=== PATIENT | male | born 1955 | race Caucasian/White ===

== ENCOUNTER 2023-08-18 13:15 | Inpatient (IN) | payer MEDICARE, BC, SELFPAY ==
[2023-08-18] VITALS (16 sets, daily range): BP systolic 103–126; BP diastolic 64–90; BMI 37.2
--- NOTE | 2023-08-18 11:25 | ED.GENMED ---
History of Present Illness
General
Chief Complaint: Heart Rate Problem
Source: patient and ambulance crew
Time Seen by Provider: 08/18/23 11:16
History of Present Illness
History of Present Illness:
67-year-old male was feeling his usual self this morning. He then got into the car to start driving and noticed that he had discomfort in his teeth and jaw associated with mild dyspnea, mild headache, and just overall not feeling well. He asked
his to take over, and she drove to a school where she was met by EMS. EMS noted patient to be in V. tach with normal vital signs at that time. He was given amnio 150 mg x 2 and then noted to go into a V-fib arrest. He was defibrillated at
200, given a total of 5 compressions, and is now awake and alert. He denies any complaints at this time, denies chest pain, jaw pain, dyspnea, or other complaints. Of note, patient vomited upon arrival to the ER.
Past History
Past History
ED Past Medical History: CAD and HTN
ED Past Surgical History: Cardiac and Other (Abdominal aortic stent)
Social History
Tobacco: Smoker
Drug: None
Personal:
Living: with family
Phy Exam
Physical Exam
Physical Exam:
GENERAL: Alert , in no apparent distress
EYE: pupils equal and reactive
NECK: Supple, no significant adenopathy.
ENT: o/p clr, mmm.
CARDIAC: Regular rate and rhythm .
LUNGS: Clear breath sounds bilaterally, no acute respiratory distress, no wheezes/rales/rhonchi
ABDOMEN: Soft, without focal tenderness, no r/g, no cvat
NEUROLOGICAL: Alert and oriented, no focal neuro deficits
SKIN: Warm and dry, skin intact.
MUSCULOSKELETAL: Trace to 1+ edema, well perfused.
PSYCH: Normal and appropriate interaction.
Course
Orders/Labs/Results
Orders:
Orders
08/18/23 11:18
EKG [Electrocardiogram (*1)] Urgent
Reason for Study: Chest Pain
EKG- Treatment ONCE
08/18/23 11:29
Complete Blood Count/With Diff Urgent
PTT Urgent
Prothrombin Time Urgent
08/18/23 11:34
Heparin 4,000 units IV NOW STA
Nitroglycerin Ointment [Nitro-Bid] 1 inch TOPICAL NOW STA
Pharmacy Request to Place See Dose Instructions PO NOW STA
Discontinue all Active Warfarin orders?: Yes
08/18/23 11:45
Amiodarone [Cordarone] 900 mg DEXTROSE 5% PVC-free BAG [D5W PVC-free BAG] 500 ml IV PER PROTOCOL
Initial Dose in mg/min:: 1
Duration of initial dose (hours):: 6
Subsequent dose in mg/min:: 0.5
Duration of subsequent dose (hours):: 18
Maximum dose in mg/min:: 1
Hold and notify provider if:: Heart rate < 60 BPM or SBP < 90 mmHg or MAP < 60 mmHg
08/18/23 12:[address] See Dose Instructions IV DIRECTED
08/18/23 12:19
Comprehensive Metabolic Panel Urgent
Magnesium Urgent
Troponin I Urgent
08/18/23 12:51
Acetaminophen [Tylenol] 650 mg PO Q4HPRN PRN
Ondansetron Injectable [Zofran] 4 mg IV Q6HPRN PRN
08/18/23 12:58
Admit/Transfer Patient As Directed
Co-Sign Provider:
Level of Care: Inpatient admission
Assign to:: ICU
Physician / Group: Hospitalist
Diagnosis: V fib arrest
Reason for Hospitalization: V fib arrest
Expected length of stay greater than two midnights?: Yes
ELOS- Estimated Length of Stay in days: 2
I certify the patient meets the requirements for IP care: Yes
08/18/23 12:59
Code Status As Directed
Resuscitation Status: Full Code
08/18/23 13:00
Electrocardiogram (*1) Q6H
Reason for Study: Chest Pain
Comment: at admission and Q3H for total of 3, to be done with each troponin
08/18/23 13:13
Echo Follow up Study W Dop Stat
Reason for Study: VF arrest
Cardiology Consult: Ted Agarwal
08/18/23 13:14
CR Chest Portable - 1 View Stat
Comment:
Reason For Exam: s/p cardiac arrest, eval for heart failure
Reason Study Needs to be Portable: Patient Unstable
08/18/23 13:30
Heparin 95478 Units/250 ml 25,000 units in 250 ml IV PER PROTOCOL
Weight to be used for heparin protocol in kilograms (kg):: 123.3
Protocol:: Cardiac Tx/Acute Coronary
PTT Goal Range to be used:: PTT 73 to 111 seconds
Order type:: Initial
INITIAL Infusion Dose (UNITS/KG/hr) & then follow protocol:: 12 units/kg/hr
Infusion Dose in UNITS/hr & then follow protocol (UNITS/hr):: 1,000
INFUSION RATE in mL/hr & then follow protocol (mL/hr):: 10
PTT less than or equal to 64 seconds:: Increase rate by 200 units/hr (+ 2 mL/hr)
PTT 64.1 to 72.9 seconds:: Increase rate by 100 units/hr (+ 1 mL/hr)
PTT 73 to 111 seconds:: Target Range. No change in rate.
PTT 111.1 to 130.9 seconds:: Decrease rate by 100 units/hr (- 1 mL/hr)
PTT 131 to 199.9 seconds:: HOLD for 1 hr. Then decrease rate by 200 units/hr (- 2 mL/hr)
PTT greater than or equal to 200 seconds:: HOLD for 2 hrs & Notify Provider. Then decrease by 200 units/hr (-
2 mL/hr)
Lab follow-up:: Each change, PTT q6h until 2 consecutive are therapeutic. Then PTT
daily.
08/18/23 14:42
Acetaminophen [Tylenol] 650 mg PO Q4HPRN PRN
Ondansetron Injectable [Zofran] 4 mg IV Q6HPRN PRN
08/18/23 14:42
CARDIOLOGY CONSULT Routine
Consulting Provider: Ted Agarwal
Was physician already notified: Yes
Reason for consult: vfib arrest
Management Internship Consult Routine
Consulting Provider: Rakesh Roland
Was physician already notified: Yes
Reason for consult: s/p V fib arrest
VTE Contraindication Routine
VTE Mechanical Device Contraindication: Medical Contraindication
Pharmocologic Contraindication: Medical Contraindication
Comment: On full dose heparin for ACS
Activity As Directed
Activity Level: With Assistance
INT (Intravenous Needle Therapy) As Directed
Comment: maintain peripheral IV access
Intake/ Output As Directed
Frequency: Per unit guidelines
Vital Signs As Directed
Frequency: Per unit guidelines
Weight As Directed
Frequency: Daily
O2 Therapy [RESP] Routine
Titrate/Wean O2 to maintain O2 sat greater than (%): 93
Pt Eval And Treat Routine
Activity Level: With Assistance
08/18/23 Dinner
Cholesterol Lowering
At Your Request: Full Participation
Cholesterol Lowering: Sodium, 2 Gram
08/18/23 16:01
Troponin I Q3H
Comment: at admit & Q3H for 3 total including ED draws, obtain ECG with each level
08/18/23 18:21
Troponin I Q3H
Comment: at admit & Q3H for 3 total including ED draws, obtain ECG with each level
08/18/23 19:00
Electrocardiogram (*1) Q6H
Reason for Study: Chest Pain
Comment: at admission and Q3H for total of 3, to be done with each troponin
08/18/23 20:44
Troponin I Q3H
Comment: at admit & Q3H for 3 total including ED draws, obtain ECG with each level
08/18/23 22:00
Lorazepam [Ativan] 1 mg PO HS
Lorazepam [Ativan] 1 mg PO HS
Tiotropium [place] 2.5 Mcg [Spiriva Respimat 2.5 Mcg] DOSE puff INH R HS
pravastatin 80 mg PO HS
08/19/23 03:56
Basic Metabolic Panel IN AM
Complete Blood Count/No Diff IN AM
08/19/23 Breakfast
NPO
Allow oral meds: Yes
Allow clear liquids: Sips of Clears
08/19/23 08:00
Aspirin Low Dose EC [Aspir Low (Enteric Coated)] 81 mg PO DAILY
Lisinopril [Zestril] 20 mg PO DAILY
Metoprolol Xl [Toprol Xl] 50 mg PO DAILY
Metoprolol Xl [Toprol Xl] 50 mg PO DAILY
lisinopril 40 mg PO DAILY
08/20/23 06:00
ECG [Electrocardiogram (*1)] IN AM
Reason for Study: Chest Pain
Abnormal Lab Results
08/18/23 08/18/23
11:29 12:19
RBC 4.69 L 10^6/uL
(4.70-6.10)
MCH 32.2 H pg
(27.0-31.0)
MPV 11.2 H fL
(7.4-10.4)
Abs Immat Gran (auto) 0.1 H 10^3/uL
(0-0.05)
Absolute Lymphs (auto) 4.9 H 10^3/uL
(1.2-3.4)
Absolute Monos (auto) 0.7 H 10^3/uL
(0.1-0.6)
Immature Gran % 0.6 H %
(0-0.5)
APTT 22.2 L Sec
(23.4-35.0)
Potassium 3.4 L mmol/L
(3.5-5.1)
Glucose 132 H mg/dl
(70-99)
Troponin I 0.242 H* ng/ml
08/18/23 11:29
08/18/23 12:19
Vital Signs
Initial and Last Documented VS:
Initial Vital Signs
Pulse Resp BP Pulse Ox
79 17 119/86 97
08/18/23 11:21 08/18/23 11:21 08/18/23 11:21 08/18/23 11:21
Last Documented Vital Signs
Temp Pulse Resp BP Pulse Ox
98.2 F 62 16 124/75 97
08/21/23 11:12 08/21/23 11:14 08/21/23 11:12 08/21/23 11:14 08/21/23 11:12
*Critical Care Note
Total Time (30-74mins, 75-104mins- exclusive of procedures): 35
Update Note
Update Note:
Patient presents to the Emergency Department with ____dizziness and jaw pain
Number and Complexity of Problems Addressed at the Encounter
� Chronic conditions affecting care: History of CAD
� Acute Exacerbation and/or Progression of Chronic Illness:
� Differential Diagnosis includes: But not limited to scar related arrhythmia, ACS, electrolyte disorder, etc.
Amount and/or Complexity of Data to be Reviewed and Analyzed
� I performed an independent evaluation of and my interpretation is:
EKG: Read by me, normal sinus rhythm, ST depressions noted in V2 through V6, no ST elevations noted
CT:
Xrays:
Laboratory Studies:
Other:
� Review of other/old records reveals:
� Clinical information was obtained by an independent historian: who is now at bedside, EMS upon their arrival
� Prescriptions/Medications Considered but not given:
� Further testing considered but not performed:
Risk of Complications and/or Morbidity or Mortality of Patient Management
� Social determinants of health affecting care:
� Discussion with other providers (PCP, Hospitalists, Consultants, etc):
� Escalation of care including admission/observation vs risk of discharge considered: Upon patient arrival, patient assessed by me, ECG reviewed, amiodarone drip ordered. Case discussed with Dr. Weeks, who does not no
indication for immediate catheterization at this time given no STEMI, no symptoms. This may be consistent with ACS, however more likely to be consistent with scar related arrhythmia. Recommends admission to cardiology and I will contact them
shortly. Agrees with plan for full dose aspirin, amnio drip, and in addition heparin and nitro as tolerated.
Case discussed with Dr. Agarwal, aware of ECG etc.� Agrees with plan, recommends decreasing amnio drip to 0.5 mg which I communicated to the RN, he will come bedside to do an echo and will see patient in consult. Case discussed with hospitalist for
admission, charge nurse aware of ICU admission. Reassessment of patient he remained stable, pain-free, pleasant.
ED Attending Note
-
Portions of this chart may have been created with voice recognition software.� Occasional wrong word or��sound alike� substitutions may have occurred due to the inherent limitations of voice recognition software.
Discharge Plan
Departure
Patient Disposition: Admit
Date of Disposition: 08/18/23
Time of Disposition: 12:08
Admit to: ICU
Presentation/result/management discussed w/ accepting MD/DO: Hospitalist
Condition: Critical
Discharge Problem:
Ventricular fibrillation
Interventions
Interventions:
*Risk Screen - Suicide Last Done: 08/18/23 14:59
*General Assessment Last Done: 08/18/23 11:48
*Neglect/Abuse Screening Last Done: 08/18/23 11:48
ED- Fall Risk Assessment Last Done: 08/18/23 11:48
*ED COVID-19 Vaccine History Last Done: 08/18/23 11:48
*Nursing Disposition Last Done: 08/18/23 14:54
ED- Cardiac Assessment Last Done: 08/18/23 11:48
ED- Pulmonary Assessment Last Done: 08/18/23 11:48
Discharge Date and Time
Discharge Date/Time: 08/18/23 14:54
[2023-08-18] MEDS: CORDARONE 518 MG IV (11:36)
[2023-08-18 11:38] LABS: % Basophils 0.7 % (0-2); % Eosinophils 2.4 % (0-6); % Immature Granulocytes 0.6 % (0-0.5); % Lymphocytes 46.1 % (20.5-51.1); % Monocytes 6.5 % (1.7-9.3); % Neutrophils 43.7 % (42.2-75.2); Absolute Basophils 0.1 10^3/uL (0-0.2); Absolute Eosinophils 0.3 10^3/uL (0-0.7); Absolute Immature Granulocytes 0.1 10^3/uL (0-0.05); Absolute Lymphocytes 4.9 10^3/uL (1.2-3.4); Absolute Monocytes 0.7 10^3/uL (0.1-0.6); Absolute Neutrophils 4.6 10^3/uL (1.4-6.5); Hematocrit 41.6 % (39.0-52.0); Hemoglobin 15.1 g/dL (13.0-18.0); Mean Corp Hgb Conc. 36.3 g/dL (33.0-37.0); Mean Corpuscular Hgb 32.2 pg (27.0-31.0); Mean Corpuscular Volume 88.7 fL (80.0-94.0); Mean Platelet Volume 11.2 fL (7.4-10.4); Nucleated Red Blood Cells % 0 % (-); Platelet Count 228 10^3/uL (130-400); Red Blood Cell Count 4.69 10^6/uL (4.70-6.10); White Blood Cell Count 10.6 10^3/uL (4.8-10.8)
--- NOTE | 2023-08-18 11:58 | CON.CAR ---
Addendum entered and electronically signed by Ted Agarwal MD 08/18/23 13:36:
Troponin noted.
I am suspicious for multivessel CAD or LM disease and will not initiate plavix pre cath
Addendum entered and electronically signed by Ted Agarwal MD 08/18/23 13:25:
cx stent in impression is >15yrs ago
Original Note:
Consultation
Consultation Request
Date/Time Consultation Requested: 08/18/2023
Date/Time Consultation Performed: 08/18/2023
Requesting Provider: Sheridan
Performing Provider: Any
Reason for Consultation: VF arrest
Medical History
-
Chief Complaint: VF arrest
History of Present Illness:
67 yo male with history of left Cx stent at [facility] and cardiology care at [place]. He felt overall unwell today and pulled the car over in a school EMS met them there. He felt tingly all over, jaw pressure in the ambulance then had
monomorphic VT which degenerated to VF. Amiodarone bolus was given and rhythm degenerated into VF. Answered with successful defibrillation X 1 and brief CPR. Review of the VT from EMS is LBLI suggesting parahisan/RVOT. Does not remember the
defibrillation. Presents to and given aspirin, nitro, heparin and IV amiodarone. His ECG is diffusely ischemic with ST depressions in inferior and precordial leads. No available records. No labs back yet. Discussed case by tiger text and phone
with Dr. Swartz and she also discussed case with Interventional cardiology with no plans for emergency cath. Patient pain free after the nitro and heparin. His prior stent was about 20 years ago in the [facility] in setting of a 'heart attack'. His
tells me that he did have some 'damage' from the heart attack. Post stent he had stress testing for a period of years but none for at least ten years. Echo will be performed in ER
Past Medical History
Past Medical History: Arrhythmias and CAD
Social History
Tobacco: Smoker
Alcohol: Occasional
Drug: None
Personal:
Living: With Family
Employment: Retired
Family History
Family History: Reviewed & Not Pertinent
Allergies / Home Medications
Allergy/AdvReac Type Severity Reaction Status Date / Time
No Known Allergies Allergy Unverified 08/18/23 11:32
Review of Systems
-
All other systems: Negative unless noted
Constitutional: Fatigue
EENT: Mouth Pain
Cardiac: Diaphoresis
Physical Exam
Vital Signs
Pulse Resp BP Pulse Ox
79 17 119/86 97
08/18/23 11:21 08/18/23 11:21 08/18/23 11:21 08/18/23 11:48
Lab Results
08/18/23 11:29
Troponin I Cancelled 08/18/23 11:29
Physical Exam
General: Well Developed and Well Nourished
HEENT: Normocephalic and Anicteric
Respiratory: Clear
Cardiac: S1/S2 and Regular Rhythm
Breast: Deferred by me
GI: Soft, Non Tender and Non Distended
Rectal: Deferred by Provider
Genito-urinary: No Costovertebral Tender
Musculoskeletal: No Clubbing
Skin: Warm and Dry
Neuro: Awake, Alert and Oriented
Hematologic/Lymphatic: No Lymphadenopathy
Psych: Calm
Impression / Plan
-
Impression:
Ventricular tachycardia
VF arrest-rescuscitated
History of Left circumflex stent >15hrs ago
Abnormal ECG
Diffuse cardiac ischemia on ECG
Tobacco abuse
HTN
COPD
Rec:
agree with aspirin, heparin, nitropaste or patch, metoprolol, and IV amiodarone
echo at bedside
cath this if he has further arrhythmia or jaw/chest symptoms
obtain old records
cath sunday otherwise-if he has a new lesion to explain arrhythmia then would address underlying CAD. If he has non obstructive CAD then would need secondary prevention ICD prior to DC. Plan depending upon cath results. Patient and family in
agreement. Discussed LHC in broad strokes with family
Data Reviewed
-
EKG: Tracing Personally Visualized and interpreted
Medical Tests (Nuc Med, Echo etc): Image Personally Visualized and interpreted
Labs: Labs Reviewed by me
Old Records: Requested
[2023-08-18 12:10] LABS: APTT 22.2 Sec (23.4-35.0); INR 0.96; PT 12.6 Sec (11.4-14.6)
--- NOTE | 2023-08-18 12:25 | HPS.HSE ---
Family Physician
-
Family Physician: Mala Garcia
Chief Complaint
-
Unstable VT and Vfib arrest.
History of Present Illness
This is a 67 y.o male with past medical history that is significant for CAD, NV status post 3 stents approximately 23 years ago, AAA, tobacco smoking, hypertension, hyperlipidemia and mild COPD without any exacerbations presenting to the
emergency department via EMS with multiple V. tach and V-fib arrest.
Patient reports that beginning to have symptoms at around 10:30 AM while attempting to drive to stop. He reported having dizziness, numbness in fingers and toes and jaw pain. He denies chest pain, shortness of breath, nausea vomiting or
diaphoresis initially. Patient maintained consciousness until EMS arrival. Per EMS record the patient had unstable V. tach which degenerated into V-fib with a transient loss of consciousness. Patient was given 2 rounds of 150 mg amiodarone, 5
compressions and 1 shock @ 200 with conversion to sinus rhythm at 11:02 AM and recovery of pulse. Patient immediately regained consciousness and was responsive.
In the ED at the bedside the patient denied of any acute symptoms. He denied any recent episodes of dyspnea on exertion, shortness of breath, palpitations or dizziness. He denies recent history or prior history of CHF. He denies any lower
extremity swelling. Denies orthopnea or PND. Reports that he has not been hospitalized for respiratory issues such as asthma or CHF. He is currently off clopidogrel but is on low-dose aspirin. Does not recall his last stress test but has been
followed regularly by cardiology at [place].
In the ED patient vital signs showed a blood pressure of 105/81, pulse of 62, oxygen saturation of 93% on room air. ECG showed a sinus rhythm rate of 67 ST depressions in V2 to V6 and a QTc of 437. The CBC shows a normal white count and hemoglobin
with normal platelet count. Chemistries troponin are pending at this time.
Medical History
Past Medical History
Past Medical History: Reports CAD
Additional Past Medical History:
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
Abdominal aortic aneurysm s/p endovascular repairs last time was 3 yrs ago
Past Surgical History: Reports Appendectomy and Other (endovascular AAA repair, )
Additional Past Surgical History:
Abdominal aortic aneurysm s/p endovascular repairs
Social History
Tobacco: Smoker
Alcohol: None
Drug: Marijuana
Family History
Family History: Not pertinent
Allergies / Home Medications
Allergies reflects when Allergies were last updated in [employer].
Home Medications with original date entered in [employer]
Allergy/Medication List:
Allergies
Allergy/AdvReac Type Severity Reaction Status Date / Time
No Known Allergies Allergy Unverified 08/18/23 11:32
Home Medications
amlodipine 10 mg tablet 10 mg PO DAILY Blood Pressure 08/18/23
aspirin 81 mg tablet,delayed release 81 mg PO DAILY Blood Clot Prevention/Tx 08/18/23
chlorthalidone 25 mg tablet 25 mg PO DAILY Blood Pressure 08/18/23
cholecalciferol (vitamin D3) 1,250 mcg (50,000 unit) capsule 1,250 mcg PO FR@0800 Supplement 08/18/23
lisinopril 40 mg tablet 40 mg PO DAILY Blood Pressure 08/18/23
lorazepam 1 mg tablet 1 mg PO HS Mental Health/Anxiety 08/18/23
metoprolol succinate 50 mg tablet,extended release 24 hr 50 mg PO DAILY Blood Pressure 08/18/23
naproxen sodium 220 mg tablet (Aleve) 220 mg PO HS Pain 08/18/23
naproxen sodium 220 mg tablet (Aleve) 440 mg PO DAILY Pain 08/18/23
omega 2-khs-csg-fish oil 1,000 mg (120 mg-180 mg) capsule (Fish Oil) 1 cap PO DAILY Supplement 08/18/23
pravastatin 80 mg tablet 80 mg PO HS High Cholesterol 08/18/23
tiotropium bromide 2.5 mcg/actuation mist for inhalation (Spiriva Respimat) 2.5 mcg inhalation R HS Lung/Breathing Issues 08/18/23
Review of Systems
-
History Source: Patient and Family
Constitutional: Reports No Symptoms
EENT: Reports No Symptoms
Respiratory: Reports No Symptoms
Cardiac: Reports Palpitations and Syncope
Abdomen/GI: Reports Nausea
: Reports No Symptoms
Musculoskeletal: Reports No Symptoms
Skin: Reports No Symptoms
Neurological: Reports Dizzy
Endocrine: Reports No Symptoms
Hematologic/Lymphatic: Reports No Symptoms
Psych: Reports No Symptoms
Physical Exam
Vital Signs
Vital Signs
Pulse Resp BP Pulse Ox
79 17 119/86 97
08/18/23 11:21 08/18/23 11:21 08/18/23 11:21 08/18/23 11:48
Physical Exam
General: Well Developed, Well Nourished and No Apparent Distress
HEENT: NormoCephalic, Anicteric, Moist mucous membranes, Atraumatic, PERRLA and Weiser Conjunctivae
Respiratory: Clear
Cardiac: S1/S2 and Regular Rhythm
Breast: Deferred by me
GI: Soft, Non Tender, Normal Bowel Sounds and No Hepatosplenomegaly
Rectal: Deferred by Provider
Genito-urinary: Deferred by me
Musculoskeletal: No Clubbing, No Cyanosis and No Edema
Skin: Warm and Dry
Neuro: AO x 3
Hematologic/Lymphatic: Lymphadenopathy
Psych: Calm
Laboratory Results
-
08/18/23 11:29
Laboratory Results
PT 12.6 Sec (11.4-14.6) 08/18/23 11:29
INR 0.96 08/18/23 11:29
APTT 22.2 Sec (23.4-35.0) L 08/18/23 11:29
Total Bilirubin Cancelled 08/18/23 11:29
AST Cancelled 08/18/23 11:29
ALT Cancelled 08/18/23 11:29
Alkaline Phosphatase Cancelled 08/18/23 11:29
Troponin I Cancelled 08/18/23 11:29
Data Reviewed
-
Diagnostic Radiology: Report Reviewed by me
Medical Tests (Nuc Med, Echo, EKG etc): Image Personally Visualized and interpreted and Report Reviewed by me
Lab Data: Labs Reviewed by me
Old Records: Requested
Impression/Plan
-
IMPRESSION:
Patient with h/o CAD s/p NV and PCI x 3 to left circ 23 yrs ago, HTN, AAA s/p endovascular repair presenting to ED with unstable VT (given 150 mg amio before arrest) and Vfib arrest with ROSC after defibrillation x 1 with 5 chest compressions.
Alert and oriented and responding to commands. ECG with ST depressions in V2-6. Currently hemodynamically stable and denies cardiac symptoms including chest pain, nausea or shortness of breath.
PLAN:
Cardiac Arrest - unstable VT with Vfib arrest s/p amio 150 and defibrillation. Patient with ROSC and immediate responsiveness. Hemodynamically stable currently. ST depression in V2 - 6 on ECG.
- admit to icu
- s/p arrest with normal mental status - > no indication for targetted temperature management
- hemodynamic goals with SBP > 90, MAP > 65 for now, levophed as needed to maintain goal
- SaO2 goal of > 93 % with supplemental O2.
- rhythm control with amio 0.5mg/hr, keep K, Mag > 4,2
- rate control with beta blockade as needed, currently rate in the low 60s
- EP consult per cardiology
- give aspirin 162, heparin gtt for possible ACS. Nitro paste per cards. Cycle cardiac enzymes.
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
- echo, npo after midnight for likely cath in am.
- check a1c, lipid panel in am
HTN -
- holding chlorthalidone, lisinopril and metoprolol today
- restart metoprolol as BP tolerates
-
Full code
[2023-08-18 12:41] LABS: ALT (SGPT) 37 U/L (0-50); AST (SGOT) 41 U/L (17-59); Albumin 3.9 g/dl (3.5-5.0); Alkaline Phosphatase 75 U/L (38-126); Blood Urea Nitrogen 16 mg/dl (9-20); Calcium 9.3 mg/dl (8.4-10.2); Carbon Dioxide 27 mmol/L (22-30); Chloride 102 mmol/L (98-107); Estimated Creatinine Clearance 86 ml/min; Glucose 132 mg/dl (70-99); Magnesium 1.9 mg/dl (1.6-2.3); Potassium 3.4 mmol/L (3.5-5.1); Sodium 135 mmol/L (135-145); Total Bilirubin 0.4 mg/dl (0.2-1.3); Total Protein 6.4 g/dl (6.3-8.2); eGFR > 60.00
[2023-08-18] MEDS: HEPARIN 4000 UNITS IV (12:44)
[2023-08-18] MEDS: NITRO-BID 1 INCH TOPICAL (12:51)
[2023-08-18 12:56] LABS: Troponin I 0.242 ng/ml
--- NOTE | 2023-08-18 13:35 | CARDSERVLU ---
Echocardiogram with [facility] completed after protocol screening completed. Allergies verified.
Patent IV site: __RAC___
IV site flushed with 0.9% NaCl pre and post administration.
Diluted bolus method utilized to enhance visualization of ventricular tan.
Total volume given: _11___ mL
Patient tolerated all procedures well without complications.
[2023-08-18] MEDS: HEPARIN 25000 UNITS/250 ML IV (14:23)
--- NOTE | 2023-08-18 14:59 | CON.INTV ---
Consultation
Consultation Request
Date/Time Consultation Requested: 08/17
Date/Time Consultation Performed: 08/17
Reason for Consultation: Critical care
Medical History
-
History of Present Illness:
History obtained from the patient and reviewing the records. 67-year-old male with history of coronary disease, hypertension, ongoing smoking who noted jaw discomfort shortness of breath. He was driving at the time. Patient drove to a parking
lot, where EMS was contacted. Patient was noted to be in VT, given amiodarone 150 mg x 2 and then went into V-fib arrest. Patient was defibrillated, 5 compressions. Patient did have emesis upon arrival to the ED. Pulse 79, breathing 17, blood
pressure 119/86, 97%. Patient was seen by cardiology, amiodarone drip started and continued.
.
PMH: History of coronary disease with stent x 3 at [facility] 2000. History of left knee arthroscopy, history of appendectomy. Sleep apnea, never followed up with treatment
Past Medical History
Past Medical History: None (See above)
Past Surgical History: None (See above)
Social History
Tobacco: Smoker ([id number], continues to smoke half a pack)
Alcohol: Former (Last drink 30+ years ago)
Drug: None
Personal:
Living: With Family
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
Family History
Family History: Other (Brother from amphetamine overdose age 65. Brother and sister alive. Mother and father . 2 daughters healthy)
Allergies / Home Medications
Allergies
Allergy/AdvReac Type Severity Reaction Status Date / Time
No Known Allergies Allergy Unverified 08/18/23 11:32
Home Medications
�Medication �Instructions �Recorded �Confirmed �Last Taken �Type
amlodipine 10 mg tablet 10 mg PO DAILY Blood Pressure 08/18/23 08/18/23 08/18/23 History
aspirin 81 mg tablet,delayed 81 mg PO DAILY Blood Clot 08/18/23 08/18/23 08/18/23 History
release Prevention/Tx
chlorthalidone 25 mg tablet 25 mg PO DAILY Blood Pressure 08/18/23 08/18/23 08/18/23 History
cholecalciferol (vitamin D3) 1,250 1,250 mcg PO FR@0800 Supplement 08/18/23 08/18/23 7 Days Ago History
mcg (50,000 unit) capsule ~08/11/23
lisinopril 40 mg tablet 40 mg PO DAILY Blood Pressure 08/18/23 08/18/23 08/18/23 History
lorazepam 1 mg tablet 1 mg PO HS Mental Health/Anxiety 08/18/23 08/18/23 08/17/23 History
metoprolol succinate 50 mg 50 mg PO DAILY Blood Pressure 08/18/23 08/18/23 08/18/23 History
tablet,extended release 24 hr
naproxen sodium 220 mg tablet 220 mg PO HS Pain 08/18/23 08/18/23 08/17/23 History
(Aleve)
naproxen sodium 220 mg tablet 440 mg PO DAILY Pain 08/18/23 08/18/23 08/18/23 History
(Aleve)
omega 7-kre-bxi-fish oil 1,000 mg 1 cap PO DAILY Supplement 08/18/23 08/18/23 08/18/23 History
(120 mg-180 mg) capsule (Fish Oil)
pravastatin 80 mg tablet 80 mg PO HS High Cholesterol 08/18/23 08/18/23 08/17/23 History
tiotropium bromide 2.5 2.5 mcg inhalation R HS 08/18/23 08/18/23 08/17/23 History
mcg/actuation mist for inhalation Lung/Breathing Issues
(Spiriva Respimat)
Review of Systems
-
All other systems: Negative unless noted
Vitals / Labs / Diagnostic Testing
Vital Signs
Temp Pulse Resp BP Pulse Ox
98.6 F 59 17 118/76 96
08/18/23 14:51 08/18/23 14:28 08/18/23 14:28 08/18/23 14:28 08/18/23 14:28
Lab Data
08/18/23 11:29
08/18/23 12:19
Laboratory Results
08/18/23
11:29
PT 12.6
INR 0.96
APTT 22.2 L
Diagnostic Testing:
Physical Exam
-
HEENT: Normocephalic, Anicteric and Other (Large neck, narrow posterior oropharynx)
Cardiovascular: S1/S2, Regular Rhythm, Murmur (n), Rub (n), Peripheral Edema (n) and Calf Tenderness (n)
Respiratory: Wheeze (n), Rales (n), Rhonchi (n) and Non-Labored Respirations
GI: Soft, Non Distended and Non Tender
Neurology: Awake, Alert, Oriented and No Motor Deficits (Moves all extremities)
Skin: Good Color and Other (No clubbing, cyanosis)
General: Comfortable
Assessment
-
67-year-old male with history of coronary disease, distant stent who presents with jaw pain, found to have VT/VF arrest status post CPR, now on heparin therapy admitted to ICU
S/p VT/VF arrest, OOH
amiodarone/compression/1 shock
ROSC, regained consciousness
Abnormal EKG
Hypokalemia
Mild hyperglycemia
Conditions present prior to admission
Sleep apnea diagnosis, did not follow-up with treatment
Coronary disease, circumflex stent x 3
2000 at [facility]
[place] at that time
Follows cardiology at [place] ([facility])
Hypertension/hyperlipidemia
History of COPD
History of appendectomy
[id number] history of smoking, ongoing
Plan/recommendations
At this time, patient appears to be comfortable. He is without symptoms
Reviewed clinical course
Presently on heparin therapy. Was on amiodarone briefly, now off
Cardiology following
Patient received aspirin
Moving forward
Continue with management per cardiology
Ischemia is suspected per correspondence
Pads in place
Follow lytes
replete potassium
Patient on outpatient inhalers. Will hold for now. Chest exam is clear
Chest x-ray is normal
Significant tobacco history noted. Would benefit from outpatient lung cancer screening
Would also benefit from revisiting sleep apnea treatment
Reviewed with patient, critical care nursing
Will follow
TCCT 31 min
[2023-08-18] MEDS: MAGNESIUM OXIDE 500 MG PO (16:02)
[2023-08-18] MEDS: KCL ELIXIR 40 MEQ PO (16:02)
--- NOTE | 2023-08-18 16:33 | PTCARENOTE ---
Pt received from ED, pulled over from stretcher to bed. Pt is Ox3, no complaints of any pain or nausea. EKG and troponin. Sinus karma on tele, trace LE edema. 98% on RA, breath sounds clear. Obese round ABD. Repleted K and Mag. Pt using urinal w/out
difficulty. Skin intact. New IV placed in R FA. 2 prehospital IV's placed on the Left. Family at bedside. Call busby within reach, pt makes needs known.
--- NOTE | 2023-08-18 20:00 | PTCARENOTE ---
Assumed care of patient. Patient AOx3, sitting up in bed, resting comfortably. Patient has no complaints of pain, including chest pain, jaw or tooth pain, shoulder pain etc. Pt on monitor, SR to SB. BP stable. Pt on RA but upon listening, noted
wheezing. Respiratory notified, patient requesting home spirivia, but also had MACHINE FOLDER order duonebs. Pts o2 sats >95%. Patient has bowel sounds, belly obese, using urinal to void. Pt has 4 peripheral IV's 2 prehospital, those will be removed. Skin is
intact. Plan of care gone over, will obtain PTT and troponins as needed. Pt understanding, no questions at this time. Safety maintained, call busby within reach.
[2023-08-18 21:01] LABS: APTT 40.8 Sec (23.4-35.0)
[2023-08-18] MEDS: ATIVAN 1 MG PO (21:50)
[2023-08-18] MEDS: DUONEB 3 ML INH (22:04)
[2023-08-19] VITALS (16 sets, daily range): BP systolic 95–148; BP diastolic 66–94; PULSE 62
[2023-08-19 04:03] LABS: Hematocrit 37.2 % (39.0-52.0); Hemoglobin 13.4 g/dL (13.0-18.0); Mean Corpuscular Hgb 32.2 pg (27.0-31.0); Mean Corpuscular Volume 89.4 fL (80.0-94.0); Mean Platelet Volume 10.3 fL (7.4-10.4); Platelet Count 172 10^3/uL (130-400); Red Blood Cell Count 4.16 10^6/uL (4.70-6.10); White Blood Cell Count 8.5 10^3/uL (4.8-10.8)
[2023-08-19 04:16] LABS: APTT 51.9 Sec (23.4-35.0)
[2023-08-19 04:51] LABS: Blood Urea Nitrogen 16 mg/dl (9-20); Carbon Dioxide 25 mmol/L (22-30); Chloride 105 mmol/L (98-107); Estimated Creatinine Clearance 104 ml/min; Glucose 97 mg/dl (70-99); Potassium 3.5 mmol/L (3.5-5.1); Sodium 135 mmol/L (135-145); eGFR > 60.00
[2023-08-19] MEDS: KCL 270 MEQ IV (06:26)
--- NOTE | 2023-08-19 07:09 | W.PN.INTV ---
Today's Communication / Plan
Recommendations
Continue heparin therapy
Patient received aspirin on admission, presently off
Remains on beta-alina
Replete potassium
Await cardiac catheterization
Assessment
-
67-year-old male with history of coronary disease, distant stent who presents with jaw pain, found to have VT/VF arrest status post CPR, now on heparin therapy admitted to ICU
S/p VT/VF arrest, OOH
amiodarone/compression/1 shock
ROSC, regained consciousness
Elevated troponin, on heparin
NSTEMI
Abnormal EKG
Hypokalemia
Mild hyperglycemia
Conditions present prior to admission
Sleep apnea diagnosis, did not follow-up with treatment
Coronary disease, circumflex stent x 3
2000 at [facility]
[place] at that [place]
Follows cardiology at [facility]
Hypertension/hyperlipidemia
History of COPD
History of appendectomy
[id number] history of smoking, ongoing
Plan/recommendations
At this time, patient appears to be comfortable. He is without symptoms
Reviewed clinical course
Presently on heparin therapy. Was on amiodarone briefly, now off
Cardiology following
Patient received aspirin
Moving forward
Continue with management per cardiology
Ischemia is suspected per correspondence
Pads in place
Plan for cardiac catheterization 08/19
Follow lytes
replete potassium
Patient on outpatient inhalers. Will hold for now. Chest exam is clear
Chest x-ray is normal
Remains on beta-alina. No wheezing
Significant tobacco history noted. Would benefit from outpatient lung cancer screening
Would also benefit from revisiting sleep apnea treatment
Reviewed with patient, critical care nursing
Reviewed with cardiology
Subjective Dataa
Subjective Data
Date of Service:
Date of Service: August 19, 2023
Subjective:
Patient appears to be comfortable, denies chest pain, chest tightness, shortness of breath, nausea, cough, abdominal pain. Receiving potassium
Objective Data
Data Reviewed
Vital Signs / I&O / Oxygen:
Vital Signs
Temp Pulse Resp BP Pulse Ox
97.8 F 57 11 111/79 96
08/19/23 01:00 08/19/23 06:00 08/19/23 06:00 08/19/23 06:00 08/19/23 06:00
Intake and Output
08/18/23 08/19/23 08/20/23
06:59 06:59 06:59
Intake Total 817.0 / 817.0
Output Total 1750 / 1750
Balance -933.0 / -933.0
SaO2 96
Physical Exam
General: Comfortable and Other (Large neck)
HEENT: Normocephalic and Anicteric
Cardiovascular: S1-S2, Regular Rhythm, Murmur (n), Rub (n) and Peripheral Edema (n)
Respiratory: Wheeze (n), Crackles (n), Rhonchi (n) and Non-Labored Respirations
GI: Soft, Non Distended (Obese) and Non Tender
Neurology: Awake, Alert and No Motor Deficits
Skin: Cyanosis (n), Jaundice (n) and Rash (n)
Labs/Micro/Reports
Lab Data
08/19/23 03:56
08/19/23 03:56
Laboratory Results
08/18/23 08/18/23 08/19/23
11:29 20:44 03:56
PT 12.6
INR 0.96
APTT 22.2 L 40.8 H 51.9 H
[2023-08-19] MEDS: TOPROL XL 50 MG PO (07:55)
--- NOTE | 2023-08-19 08:10 | PTCARENOTE ---
Rec'd pt at 0700. Pt AAOx3, follows commands, LIANG. Monitor SR. Amio gtts infusing at 0.5mg/min, Heparin gtts at 1400units/hr. Lungs CTA, pox 97% RA. +BS, abd large/round/NT. Vdg yellow urine via urinal. Denies any pain/SOB.
[2023-08-19] MEDS: ZESTRIL 20 MG PO (09:05)
--- NOTE | 2023-08-19 09:43 | W.PN.CARDCBS ---
Today's Communication / Plan
-
Aspirin metoprolol and heparin
P.o. amiodarone
Will put in for cardiovascular panel in a.m. and statin
Cath Sunday
Impression / Plan
-
Impression:
Ventricular tachycardia
VF arrest-rescuscitated
History of Left circumflex stent >15hrs ago
Abnormal ECG
Diffuse cardiac ischemia on ECG
Tobacco abuse
HTN
COPD
Rec:
-agree with aspirin, heparin, metoprolol
-He currently has no nitroglycerin requirement and will remain off nitroglycerin as he has further symptoms
-I initiated p.o. amiodarone 2 mg twice daily for arrhythmia suppression
-I added him on for left heart catheterization Sunday morning and put in n.p.o. orders for Sunday
obtain old records
cath sunday otherwise-if he has a new lesion to explain arrhythmia then would address underlying CAD. If he has non obstructive CAD then would need secondary prevention ICD prior to DC. Plan depending upon cath results. Patient and family in
agreement. Discussed LHC in broad strokes with family
Progress Note - Clinical Services Assistant
Subjective
Date of Service: August 19, 2023
Feels well, no jaw or chest symptoms
Objective
Labs:
08/19/23 03:56
08/19/23 03:56
Labs
Hgb 13.4 g/dL (13.0-18.0) 08/19/23 03:56
Hct 37.2 % (39.0-52.0) L 08/19/23 03:56
Plt Count 172 10^3/uL (130-400) D 08/19/23 03:56
PT 12.6 Sec (11.4-14.6) 08/18/23 11:29
INR 0.96 08/18/23 11:29
APTT 51.9 Sec (23.4-35.0) H 08/19/23 03:56
Sodium 135 mmol/L (135-145) 08/19/23 03:56
Potassium 3.5 mmol/L (3.5-5.1) 08/19/23 03:56
BUN 16 mg/dl (9-20) 08/19/23 03:56
Creatinine 0.9 mg/dL (0.7-1.3) 08/19/23 03:56
Glucose 97 mg/dl (70-99) 08/19/23 03:56
Troponins
08/18/23 08/18/23 08/18/23
11:29 12:19 13:00
Troponin I Cancelled 0.242 H* Cancelled
08/18/23 08/18/23 08/18/23
16:00 16:01 18:21
Troponin I Cancelled 11.300 H* D 9.660 H*
08/18/23 08/18/23 08/18/23
19:00 20:44 21:00
Troponin I Cancelled 8.290 H* Cancelled
Vital Signs and I&O:
Vital Signs
Temp Pulse Resp BP Pulse Ox
97.7 F 60 12 110/81 97
08/19/23 07:52 08/19/23 07:45 08/19/23 07:45 08/19/23 07:00 08/19/23 07:45
Vital Signs
Temp Pulse Resp BP Pulse Ox
97.7 F 60 12 110/81 97
08/19/23 07:52 08/19/23 07:45 08/19/23 07:45 08/19/23 07:00 08/19/23 07:45
Intake & Output
08/17/23 08/18/23 08/19/23 08/20/23
06:59 06:59 06:59 06:59
Intake Total 817.0 / 915.2 534.6 / 534.6
Output Total 1750 / 1750 500 / 500
Balance -933.0 / -834.8 34.6 / 34.6
Physical Exam
Physical Exam
Physical Exam
General: no apparent distress, not acutely ill
Neck: supple. no meningeal signs. normal psoterior pharynx
Heart: s1/s2 regular rate and rhythm, no murmur. equal radial pulses.
Lungs: no acute respiratory distress. clear bilaterally
Abdomen: normal bowel sounds. not tender. no CVAT
Neuro: alert and oriented. no focal neurological deficits
Skin: no rash
Psychiatric: well kept. interactive and cooperative
Extremities: no edema. no calf tenderness. negative homans. good distal pulses
[2023-08-19] MEDS: PACERONE 200 MG PO ×2 (10:11→19:56)
[2023-08-19] MEDS: HEPARIN 25000 UNITS/250 ML IV (11:22)
[2023-08-19 12:00] LABS: APTT 38.7 Sec (23.4-35.0)
--- NOTE | 2023-08-19 12:27 | W.PN.HOSP.TC ---
Today's Communication/Plan
-
Monitor vital signs and see plan
Continue with heparin drip
Continue with amnio
Continue with metoprolol
transfer to IVU if okay with cardiology
Assessment / Plan
Assessment / Plan
General: Well Developed, Well Nourished and No Apparent Distress
HEENT: NormoCephalic, Anicteric
Respiratory: Clear
Cardiac: S1/S2 and Regular Rhythm
Breast: Deferred by me
GI: Soft, Non Tender, Normal Bowel Sounds
Musculoskeletal: No Edema
Neuro: AO x 3
Hematologic/Lymphatic: Lymphadenopathy
Psych: Calm
Cardiac Arrest - unstable VT with Vfib arrest s/p amio 150 and defibrillation. Patient with ROSC and immediate responsiveness
Currently in ICU
- s/p arrest with normal mental status - > no indication for targeted temperature management
Now on p.o. Amio
Continue with heparin drip, plan for cardiac catheterization tomorrow
Depends on cardiac catheterization will see if needs ICD.
- check a1c, lipid panel in am
NSTEMI
Continue heparin drip
Troponin ordered
Monitor
History of CAD
Left circumflex stent greater than 15 years ago at [place]
Follows up with cardiology at [place]
HTN -
Continue with metoprolol
Hold lisinopril since going for cardiac cath tomorrow
- restart metoprolol as BP tolerates
hx of HLD
hx of COPD
DVTppx
heparin
Full code
Discussed with patient and family bedside
Anticipated Discharge: > 48 hours
Subjective/Interval History
-
Date of Service: August 19, 2023
denies chest pain
Objective Data
-
Labs:
Laboratory Results
08/19/23 08/19/23
03:56 11:33
WBC 8.5
Hgb 13.4
Hct 37.2 L
Plt Count 172 D
APTT 51.9 H 38.7 H
Sodium 135
Potassium 3.5
Chloride 105
Carbon Dioxide 25
BUN 16
Creatinine 0.9
Glucose 97
Calcium 9.0
Vital Signs:
Vital Signs
Temp Pulse Resp BP Pulse Ox
98.2 F 61 20 134/84 98
08/19/23 12:18 08/19/23 12:18 08/19/23 12:18 08/19/23 12:18 08/19/23 08:00
I&O
08/18/23 08/19/23 08/20/23
06:59 06:59 06:59
Intake Total 817.0 / 915.2 548.6 / 548.6
Output Total 1750 / 1750 500 / 500
Balance -933.0 / -834.8 48.6 / 48.6
--- NOTE | 2023-08-19 12:35 | PTCARENOTE ---
~1015-Amio gtts dc'd, started on PO Amio. Pt assisted to BR for BM this am. Pt OOB in chair, ambulates in room. Family at bedside, updated. Heparin gtts increased to 1600units/hr per protocol. Denies any pain/SOB.
[2023-08-19] MEDS: ASPIR LOW (ENTERIC COATED) 81 MG PO (14:49)
[2023-08-19] MEDS: PRAVACHOL 80 MG PO (17:27)
[2023-08-19 19:53] LABS: APTT 68.5 Sec (23.4-35.0)
[2023-08-19] MEDS: NICODERM TRANSDERMAL 21 MG TRANSDERM (19:56)
[2023-08-19] MEDS: ATIVAN 1 MG PO (21:35)
--- NOTE | 2023-08-19 21:55 | PTCARENOTE ---
Pt received at 19:00. Ox3, pleasant and cooperative. SR-sinus karma, HR 50s-60s. RA with pulse ox >95%. Breath sounds diminished t/o. +BS, no BM noted. Voids in urinal, clear yellow urine. Heparin gtt continues, PTT 68.5, titrated as ordered. Next
PTT at 02:00. Safe environment maintained, call busby within reach. Plan of care ongoing.
--- NOTE | 2023-08-19 23:37 | PTCARENOTE ---
Transferred from ICU to IVU. Oriented pt to unit. Pt ambulated to bed w/ steady gait. AOx3. Tele- SB/SR. HR 50-60s. BP 141/81. Nicotine patch on L upper arm. Pt sating at 95% on RA. Offers no c/o at this time. Currently in bed; call kehinde w/in reach.
[2023-08-20] VITALS (12 sets, daily range): BP systolic 132–155; BP diastolic 84–99; BMI 36.8
[2023-08-20] MEDS: HEPARIN 25000 UNITS/250 ML IV (02:32)
[2023-08-20 02:46] LABS: % Basophils 0.4 % (0-2); % Eosinophils 2.3 % (0-6); % Immature Granulocytes 0.4 % (0-0.5); % Lymphocytes 31.9 % (20.5-51.1); % Monocytes 7.2 % (1.7-9.3); % Neutrophils 57.8 % (42.2-75.2); Absolute Eosinophils 0.2 10^3/uL (0-0.7); Absolute Lymphocytes 2.4 10^3/uL (1.2-3.4); Absolute Monocytes 0.5 10^3/uL (0.1-0.6); Absolute Neutrophils 4.3 10^3/uL (1.4-6.5); Hematocrit 38.9 % (39.0-52.0); Hemoglobin 14.1 g/dL (13.0-18.0); Mean Corp Hgb Conc. 36.2 g/dL (33.0-37.0); Mean Corpuscular Hgb 32.2 pg (27.0-31.0); Mean Corpuscular Volume 88.8 fL (80.0-94.0); Mean Platelet Volume 10.5 fL (7.4-10.4); Nucleated Red Blood Cells % 0 % (-); Platelet Count 182 10^3/uL (130-400); Red Blood Cell Count 4.38 10^6/uL (4.70-6.10); Red Cell Dist. Width 13.1 % (11.5-14.5); White Blood Cell Count 7.5 10^3/uL (4.8-10.8)
[2023-08-20 02:54] LABS: APTT 30.2 Sec (23.4-35.0)
[2023-08-20 03:56] LABS: Blood Urea Nitrogen 14 mg/dl (9-20); Calcium 9.5 mg/dl (8.4-10.2); Carbon Dioxide 26 mmol/L (22-30); Chloride 102 mmol/L (98-107); Estimated Creatinine Clearance 103 ml/min; Glucose 83 mg/dl (70-99); HDL Cholesterol 36 mg/dl; LDL Cholesterol, Calculated 49 mg/dl; Potassium 3.9 mmol/L (3.5-5.1); Sodium 136 mmol/L (135-145); Total Cholesterol 124 mg/dl (50-199); Triglyceride 198 mg/dl (10-149); Very Low Density Lipoprotein 39 mg/dl (0-30); eGFR > 60.00
[2023-08-20 05:21] LABS: Hepatitis C Antibody Negative (Negative)
[2023-08-20] MEDS: ASPIR LOW (ENTERIC COATED) 81 MG PO (07:26)
[2023-08-20] MEDS: PACERONE 200 MG PO ×2 (07:26→20:27)
[2023-08-20] MEDS: TOPROL XL 50 MG PO (07:26)
--- NOTE | 2023-08-20 07:44 | W.PN.HOSP.TC ---
Today's Communication/Plan
-
For cardiac cath today
Continue on heparin drip
P.o. amiodarone as per cardiology/added metoprolol succinate on admission
Aspirin and prior statin
Lisinopril dosing reduced from 40 to 20 mg on admission had also been on chlorthalidone presently held
Assessment / Plan
Assessment / Plan
General: Well Developed, Well Nourished and No Apparent Distress
HEENT: NormoCephalic, Anicteric
Respiratory: Clear
Cardiac: S1/S2 and Regular Rhythm
Breast: Deferred by me
GI: Soft, Non Tender, Normal Bowel Sounds
Musculoskeletal: No Edema
Neuro: AO x 3
Hematologic/Lymphatic: Lymphadenopathy
Psych: Calm
Cardiac Arrest - unstable VT with Vfib arrest s/p amio 150 and defibrillation. Patient with ROSC and immediate responsiveness
Currently in ICU
- s/p arrest with normal mental status - > no indication for targeted temperature management
Now on p.o. Amio
Continue with heparin drip, plan for cardiac catheterization today
Depends on cardiac catheterization will see if needs ICD.
- check a1c, lipid panel in am/triglycerides 198 LDL 49 total cholesterol 124 HDL 36
NSTEMI
Continue heparin drip
Troponin ordered initial 9.66 trending down
Monitor
History of CAD
Left circumflex stent greater than 15 years ago at [place]
Follows up with cardiology at [place]
HTN -
Continue with metoprolol
Hold lisinopril since going for cardiac cath tomorrow
- restart metoprolol as BP tolerates
hx of HLD
hx of COPD
DVTppx
heparin
Full code
Discussed with patient and family bedside
Anticipated Discharge: Within 24 hours
Subjective/Interval History
-
Date of Service: August 20, 2023
He had an unremarkable night denying any present chest pain or even at the sites of his chest compressions presently
Objective Data
-
Labs:
Laboratory Results
08/19/23 08/20/23 08/20/23
19:30 02:26 09:30
WBC 7.5
Hgb 14.1
Hct 38.9 L
Plt Count 182
APTT 68.5 H 30.2 Pending
Sodium 136
Potassium 3.9
Chloride 102
Carbon Dioxide 26
BUN 14
Creatinine 0.9
Glucose 83
Calcium 9.5
Vital Signs:
Vital Signs
Temp Pulse Resp BP Pulse Ox
97.9 F 68 16 150/94 95
08/20/23 07:25 08/20/23 07:30 08/20/23 07:25 08/20/23 07:25 08/20/23 02:27
I&O
08/19/23 08/20/23 08/21/23
06:59 06:59 06:59
Intake Total 817.0 / 915.2 1098.6 / 1098.6
Output Total 1750 / 1750 1625 / 1625
Balance -933.0 / -834.8 -526.4 / -526.4
Review of Systems
-
All other systems: Not reviewed unless documented (Only remembers waking up in an ambulance)
Physical Exam
-
General: Well Developed
HEENT: Normocephalic
Respiratory: Clear to Auscultation
Cardiac: Regular Rhythm and S1/S2
GI: Soft and Nontender
Neuro: Awake, Alert and Oriented
Psych: Calm and Confused
Data Reviewed
-
Total Time Spent with Patient (in minutes): 45
[2023-08-20 10:21] LABS: APTT 32.4 Sec (23.4-35.0)
--- NOTE | 2023-08-20 12:31 | ITS.CL.CATH ---
911 Dispatcher - Catheterization
Cardiac Catheterization
Procedure Report:
LEFT HEART CATHETERIZATION AND CORONARY INTERVENTION
Date of Procedure: August 20, 2023
Referring: Ted Agarwal MD
PROCEDURES:
1. Left catheterization, coronary angiogram.
2. Ultrasound-guided access.
3. Physiologic functional testing with IFR of mid LAD.
4. Successful percutaneous coronary artery intervention of a hazy 80 to 85% in-stent proximal left circumflex re-stenosis with a 3.5 x 23 mm Xience xuan point drug-eluting stent, successfully postdilated using a 3.75 x 12 mm NC balloon at 18 eric
with an excellent angiographic result.
INDICATION: Mr Jonas is a 67-year-old gentleman with past medical history of remote stent in left circumflex artery more than 15 years ago, tobacco abuse, hypertension, COPD, not on home oxygen who presented with VT/VF cardiac arrest with a
postarrest ECG showing diffuse ischemia with ST elevation in aVR and ST depressions in other leads now being referred for a left heart catheterization to rule out obstructive CAD as etiology for his cardiac arrest.
ACCESS: Right radial access, 6 Lithuanian sheath, under ultrasound guidance
HEMODYNAMICS : (mmHg)
AO (s/d) : 150/92
CORONARY FINDINGS
DOMINANCE: Left
LEFT MAIN: The left main artery is a large-caliber vessel which gives rise to the left anterior descending artery a small to medium caliber ramus intermedius branch and the left circumflex artery. There is minimal luminal irregularities.
LEFT ANTERIOR DESCENDING: The left anterior descending artery is a large-caliber vessel which gives rise to multiple small caliber diagonal branches. There is tubular 50 to 60% stenosis in the mid LAD at the level of the septal and diagonal branch
which is IFR negative at 0.93.
RAMUS INTERMEDIUS: The ramus intermedius branch is a medium caliber vessel with mild diffuse disease in the proximal portion and 40% tubular stenosis in the distal portion.
CIRCUMFLEX: The left circumflex artery is a large-caliber, dominant vessel which gives rise to 118 caliber OM1, a couple small caliber left posterolateral branches and the left posterior descending artery. There is a hazy 80 to 85% in-stent
restenosis at the proximal edge of a old stent in the proximal left circumflex. OM1 has mild to moderate diffuse in-stent disease. The hazy 80 to 85% in-stent restenosis was thought to be the culprit of patient's presenting acute coronary
syndrome/cardiac arrest and decision was made to perform percutaneous intervention.
RIGHT CORONARY ARTERY: The right coronary artery is a small caliber, nondominant vessel with minimal luminal irregularities.
HEMODYNAMIC ASSESSMENT OF THE MID LAD WITH A NavendisO OMNI WIRE: The origin of the left coronary artery was cannulated with a 6 Fr EBU 3.5 guide catheter. Intravenous heparin was administered and the ACT was followed during the procedure. Two
hundred micrograms of intracoronary nitroglycerin was given through the guide catheter. A Blakely Omni wire was advanced to the guide catheter tip and normalized to guide catheter pressure. The Omni wire was then carefully manipulated across the
stenosis in the mid LAD with the iFR above the ischemic threshold serially measuring 0.94, 0.94, 0.93. The Omni wire was then pulled back to the guide catheter where the Pd/Pa measured 1.0 confirming no baseline drift in pressure readings
CORONARY INTERVENTION: With the guide still engaged in the left coronary artery, a 190 cm 0.014' BMW coronary wire was advanced across the hazy proximal left circumflex lesion into the distal left circumflex with some degree of difficulty given
right subclavian tortuosity and tenuous guide support in the setting of a acute angle of the left circumflex of the left main. We predilated the lesion using a 3.0 x 15 mm semicompliant balloon with good expansion. We then attempted to deliver the
stent however given significant tortuosity we were not successful in doing so. We introduced a 6 Lithuanian guide liner to help assist in delivering the stent. With the help of a guide liner and some difficulty we were able to successfully advance and
deployed the stent in the proximal left circumflex spanning across the prior stent. The stent was successfully postdilated using a 3.75 x 15 mm NC balloon at 18 eric with an excellent angiographic result and MELISSA-3 flow. Patient was loaded with 180
mg of Brilinta at the end of the case. No acute complications.
SEDATION: 97 minutes of procedural sedation was utilized. An independent medical billing and coding specialist was present to assist with and help manage the patient's level of consciousness and physiologic status.
RADIATION SUMMARY: Fluoro Time (min): 19.3, Dose (mGy): 1323.6, DAP (Gy.cm2) : 111.8
Closure Device: Vascular band over right radial artery, 11 cc of air.
CONCLUSIONS
1. Left dominant circulation.
2. Successful percutaneous coronary artery intervention of a hazy 80 to 85% in-stent proximal left circumflex re-stenosis with a 3.5 x 23 mm Xience xuan point drug-eluting stent, successfully postdilated using a 3.75 x 12 mm NC balloon at 18 eric with
an excellent angiographic result.
3. There is tubular 50 to 60% stenosis in the mid LAD at the level of the septal and diagonal branch which is IFR negative at 0.93.
4. OM1 has mild to moderate diffuse in-stent disease.
RECOMMENDATIONS
1. Uninterrupted dual antiplatelet therapy in the setting of acute coronary syndrome with daily baby aspirin and Brilinta 90 mg twice daily along with high intensity statin and beta-alina as tolerated.
2. Full echocardiogram to assess biventricular function and rule out any significant valvular disease.
3. Wean radial band per protocol.
4. Aggressive management of cardiovascular risk factors.
5. Strongly recommended complete smoking cessation.
6. Referral for outpatient cardiac rehab.
Copy to: Ted Agarwal MD
Lucinda Ramires MD, [facility], [facility]
[2023-08-20 13:51] LABS: ACT-LR - POC 282 Seconds (116-155)
--- NOTE | 2023-08-20 13:54 | W.PN.PUL3 ---
Today's Communication / Plan
-
DAPT per cardiology
Replete K>4, Mg>2
MAP>65
BG 100-180
Pulmonary service will now sign off. Outpatient follow-up will be arranged. Please reconsult if there are any additional questions/concerns, or if patient's respiratory status deteriorates.
Assessment
-
67-year-old male with history of coronary disease, distant stent who presents with jaw pain, found to have VT/VF arrest status post CPR, now on heparin therapy admitted to ICU
Impression:
S/p VT/VF arrest, OOH
amiodarone/compression/1 shock
ROSC, regained consciousness
Elevated troponin
NSTEMI
Abnormal EKG
Hypokalemia
Mild hyperglycemia
Conditions present prior to admission
Sleep apnea diagnosis, did not follow-up with treatment
Coronary disease, circumflex stent x 3
2000 at [facility]
[place] at that time
Follows cardiology at [facility])
Hypertension/hyperlipidemia
History of COPD
History of appendectomy
[id number] history of smoking, ongoing
Plan/recommendations
At this time, patient appears to be comfortable. He is without symptoms
Reviewed clinical course
Awaiting [facility] today --> s/p PCI to LCx in-stent restenosis with DEBORA x1
Continue DAPT with Brilinta and ASA
Amiodarone as per cardiology
High-intensity statin with goal LDL<70
Replete K>4, Mg>2
Maintain MAP>65
Maintain euglycemia with ghoal BG 100-180mg/dL
Patient on outpatient inhalers. Ok to resume spiriva upon discharge
Chest x-ray is normal
Remains on beta-alina. No wheezing
Significant tobacco history noted. Would benefit from outpatient lung cancer screening
Would also benefit from revisiting sleep apnea treatment
Outpatient follow-up will be arranged.
Total time spent today was 25 minutes for this encounter. Time includes reviewing laboratory test/imaging results, reviewing pertinent medical records, obtaining and reviewing medical history, performing an appropriate exam, ordering medications,
tests and procedures. Time also includes documentation of this encounter, coordinating patient care and communicating with other healthcare professionals. Total time does not include separately billed tests performed on this date of service.
Pulmonary service will now sign off. Outpatient follow-up will be arranged. Thank you for allowing us to be involved in the care of this patient. Please reconsult if there are any additional questions/concerns, or if patient's respiratory status
deteriorates.
Data:
CXR 08-18-2023: No acute cardiopulmonary process.
Subjective Data
-
Date of Service:
Date of Service: August 20, 2023
Chief Complaint: Pulmonary Follow Up
Subjective:
Left heart cath performed today - PCI of of in-stent restenosis of the proximal LCx with DEBORA x 1 placed with excellent angiographic result. Patient on room air breathing comfortably and saturating 96%.
Review of Systems
General: Other (Negative unless mentioned above)
Objective Data
Data Reviewed
Vital Signs / I&O / Oxygen:
Vital Signs
Temp Pulse Resp BP Pulse Ox
97.7 F 58 16 154/99 96
08/20/23 15:12 08/20/23 16:24 08/20/23 16:24 08/20/23 16:00 08/20/23 16:24
Intake and Output
08/19/23 08/20/23 08/21/23
06:59 06:59 06:59
Intake Total 817.0 / 915.2 1098.6 / 1098.6
Output Total 1750 / 1750 1625 / 1625
Balance -933.0 / -834.8 -526.4 / -526.4
SaO2 96
Nasal Cannula flow liters per 96
minute
Physical Exam
General: Comfortable
HEENT: Normocephalic, Anicteric and Other (Thick neck)
Cardiovascular: S1-S2 and Peripheral Edema (Negative)
Respiratory: Clear, Wheeze (Negative), Crackles (Negative), Rhonchi (Negative) and Non-Labored Respirations
GI: Soft, Non Distended and Non Tender
Neurology: Awake and Alert
Skin: Warm and Dry
Labs/Micro/Reports
Lab Data
08/20/23 02:26
08/20/23 02:26
Laboratory Results
08/19/23 08/20/23 08/20/23
19:30 02:26 09:59
APTT 68.5 H 30.2 32.4
[2023-08-20 14:15] LABS: ACT-LR - POC 266 Seconds (116-155)
[2023-08-20 14:42] LABS: ACT-LR - POC 271 Seconds (116-155)
[2023-08-20] MEDS: NSS 1000 IV (16:00)
[2023-08-20] MEDS: NORVASC 5 MG PO (16:02)
--- NOTE | 2023-08-20 16:04 | CM ---
Reviewed chart. Met with and Mrs. Parekh to review discharge plans. He states prior to admission he resides with his spouse in a one story home with five steps to enter. He states prior to admission he was independent in adls. He states he
uses a walker in the community. He states he has a prescription plan. Medical work-up in progress. The discharge plan is to return home with his spouse when medically stable.
[2023-08-20] MEDS: DUONEB 3 ML INH (16:20)
[2023-08-20] MEDS: PRAVACHOL 80 MG PO (18:00)
--- NOTE | 2023-08-20 19:09 | PTCARENOTE ---
Pt received post cath with right radial band WNL. Band removed as ordered at 1845. Pt called at 1800 and stated that he sometimes feels a sob feeling. Lungs clear, room air sat 99%. Pt stated that maybe he is anxious about not having a cigarette.
Will continue to monitor. Pt ambulating in the motley with his and stated he is feeling better.
[2023-08-20] MEDS: ATIVAN 1 MG PO (21:13)
--- NOTE | 2023-08-21 00:03 | PTCARENOTE ---
R radial site w/ mod amt. serosanguineous drg.on dsg. Positive pulse. POX 97% on RA. Tele- SR/SB. L arm nicotine patch removed per order. Offers no other c/o at this time. Currently in bed; call kehinde w/in reach.
[2023-08-21 03:17] VITALS: BP 157/106
[2023-08-21 03:19] VITALS: BP 147/92
[2023-08-21 03:42] VITALS: BMI 36.5
[2023-08-21 03:50] LABS: Hematocrit 39.1 % (39.0-52.0); Hemoglobin 14.1 g/dL (13.0-18.0); Mean Corp Hgb Conc. 36.1 g/dL (33.0-37.0); Mean Corpuscular Volume 88.9 fL (80.0-94.0); Mean Platelet Volume 10.3 fL (7.4-10.4); Platelet Count 185 10^3/uL (130-400); Red Cell Dist. Width 12.8 % (11.5-14.5); White Blood Cell Count 7.5 10^3/uL (4.8-10.8)
[2023-08-21 04:22] LABS: Blood Urea Nitrogen 14 mg/dl (9-20); Calcium 9.4 mg/dl (8.4-10.2); Carbon Dioxide 24 mmol/L (22-30); Chloride 105 mmol/L (98-107); Estimated Creatinine Clearance 116 ml/min; Glucose 85 mg/dl (70-99); Potassium 3.9 mmol/L (3.5-5.1); Sodium 134 mmol/L (135-145); eGFR > 60.00
[2023-08-21 06:59] VITALS: BP 148/88
[2023-08-21] MEDS: PACERONE 200 MG PO (08:14)
[2023-08-21] MEDS: TOPROL XL 50 MG PO (08:14)
[2023-08-21] MEDS: ASPIR LOW (ENTERIC COATED) 81 MG PO (08:14)
[2023-08-21] MEDS: NORVASC 5 MG PO (08:14)
[2023-08-21] MEDS: BRILINTA 90 MG PO (08:14)
--- NOTE | 2023-08-21 08:14 | W.PN.HOSP.TC ---
Today's Communication/Plan
-
Cardiac med management as per cardiology and discharge plan for follow-up
Will need to follow-up with his PCP in regards to addressing possible underlying type 2 diabetes mellitus obtaining glycosylated hemoglobin prior to his discharge and should have follow-up results with them
Instructed on low calorie diet
Assessment / Plan
Assessment / Plan
General: Well Developed, Well Nourished and No Apparent Distress
HEENT: NormoCephalic, Anicteric
Respiratory: Clear
Cardiac: S1/S2 and Regular Rhythm
Breast: Deferred by me
GI: Soft, Non Tender, Normal Bowel Sounds
Musculoskeletal: No Edema
Neuro: AO x 3
Hematologic/Lymphatic: Lymphadenopathy
Psych: Calm
Cardiac Arrest - unstable VT with Vfib arrest s/p amio 150 and defibrillation. Patient with ROSC and immediate responsiveness
Currently in ICU
- s/p arrest with normal mental status - > no indication for targeted temperature management
Now on p.o. Amio
Underwent left heart catheterization with successful PCI of an 85% in-stent proximal left circumflex restenosis with DEBORA placed
-Recommendation for uninterrupted dual antiplatelet therapy in the setting of ACS/aspirin and Brilinta initiated high intensity statin and beta-alina as tolerated will defer to cardiology Still pending echocardiography to assess ventricular
function and/or valvular disease/strongly recommended again to discontinue tobacco
- check a1c, lipid panel in am/triglycerides 198 LDL 49 total cholesterol 124 HDL 36
NSTEMI
Continue heparin drip
Troponin ordered initial 9.66 trending down
Monitor
History of CAD
Left circumflex stent greater than 15 years ago at [place]
Follows up with cardiology at [place]
HTN -
Continue with metoprolol
Hold lisinopril since going for cardiac cath tomorrow
- restart metoprolol as BP tolerates
Persisting hyperglycemia since here
-Suspect new onset type 2 diabetes mellitus
-Strong family history
-Obtain glycohemoglobin/would defer metformin given proximity to cardiac cath
-Will place on sliding scale coverage while here
-Instructed to follow-up with his primary care provider for initiation of directed therapy for his presumptive type 2 diabetes mellitus with A1c still pending
-Placed on diet and sliding scale coverage while here
hx of HLD
hx of COPD
DVTppx
heparin
Full code
Discussed with patient and family bedside
Anticipated Discharge: Within 24 hours
Subjective/Interval History
-
Date of Service: August 21, 2023
. no discomfort/no issues with right wrist/we discussed the issue with his continued elevations in blood sugars been told he is not diabetic although he has a positive family history is always wondering about that. We also discussed the need for
follow-up with his PCP as I would like to place him on metformin initially started his treatment for presumptive type 2 diabetes mellitus but just had a contrast study with his cardiac cath and will defer for at least 48 hours.
Objective Data
-
Labs:
Laboratory Results
08/21/23 08/21/23
03:39 03:40
WBC 7.5
Hgb 14.1
Hct 39.1
Plt Count 185
Sodium 134 L
Potassium 3.9
Chloride 105
Carbon Dioxide 24
BUN 14
Creatinine 0.8
Glucose 85
Calcium 9.4
Vital Signs:
Vital Signs
Temp Pulse Resp BP Pulse Ox
97.8 F 70 16 147/92 98
08/21/23 06:53 08/21/23 06:53 08/21/23 06:53 08/21/23 03:19 08/21/23 06:53
I&O
08/20/23 08/21/23 08/22/23
06:59 06:59 06:59
Intake Total 1098.6 / 1098.6 480 / 480
Output Total 1625 / 1625 600 / 600
Balance -526.4 / -526.4 -120 / -120
Review of Systems
-
History Source: Patient
Physical Exam
-
General: Well Developed
HEENT: Normocephalic
Respiratory: Clear to Auscultation
Cardiac: Regular Rhythm
GI: Soft
Genito-urinary: Costovertebral Angle Tend
Neuro: Awake
Psych: Calm
Data Reviewed
-
Total Time Spent with Patient (in minutes): 56
Medical Tests (Nuc Med, Echo etc): Report Reviewed by me
[2023-08-21 10:27] VITALS: BP 139/94
[2023-08-21 10:35] VITALS: BP 139/94; PULSE 68
--- NOTE | 2023-08-21 10:41 | PTOTSP ---
Patient has achieved physical therapy goals, patient demonstrates independence with mobility including stairs, no skilled physical therapy needs at this time.
[2023-08-21 11:14] VITALS: BP 124/75
[2023-08-21 11:59] LABS: Glucose - Point of Care 114 mg/dl (70-99)
--- NOTE | 2023-08-21 12:57 | W.DCSUMMARY ---
Discharge Summary
Discharge Data
Date of Admission: 08/18/23
Date of Discharge: 08/21/23
-
Pending Results: No
Hospital Course
67 y.o male with past medical history that is significant for CAD, ND status post 3 stents approximately 23 years ago, AAA, tobacco smoking, hypertension, hyperlipidemia and mild COPD without any exacerbations presenting to the emergency
department via EMS with multiple V. tach and V-fib arrest.
Patient reports that beginning to have symptoms at around 10:30 AM while attempting to drive to store. He reported having dizziness, numbness in fingers and toes and jaw pain. He denies chest pain, shortness of breath, nausea vomiting or
diaphoresis initially. Patient maintained consciousness until EMS arrival. Per EMS record the patient had unstable V. tach which degenerated into V-fib with a transient loss of consciousness. Patient was given 2 rounds of 150 mg amiodarone, 5
compressions and 1 shock @ 200 with conversion to sinus rhythm at 11:02 AM and recovery of pulse. Patient immediately regained consciousness and was responsive.
In the ED at the bedside the patient denied of any acute symptoms. He denied any recent episodes of dyspnea on exertion, shortness of breath, palpitations or dizziness. He denies recent history or prior history of CHF. He denies any lower
extremity swelling. Denies orthopnea or PND. Reports that he has not been hospitalized for respiratory issues such as asthma or CHF. He is currently off clopidogrel but is on low-dose aspirin. Does not recall his last stress test but has been
followed regularly by cardiology at [place].
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 After ROSC noted to have significant elevated troponin met criteria for done ST elevation myocardial infarction with abnormal EKG.
It is noteworthy the patient has a prior of a PCI stent some 20 years ago to the left circumflex in the setting of 'heart attack'.
He underwent a left heart catheterization :: Successful percutaneous coronary artery intervention of a hazy 80 to 85% in-stent proximal left circumflex re-stenosis with a 3.5 x 23 mm Xience drug-eluting stent, successfully postdilated using a 3.75
x 12 mm NC balloon at 18 eric with an excellent angiographic result.
He will undergo uninterrupted dual antiplatelet therapy in the setting of ACS with Brilinta 90 mg twice a day and baby aspirin along with high intensity statin to be continued and beta-blockade. A subsequent echocardiogram showed normal LV
function. He was again strongly recommended he abstain from further cigarette smoking. Medication changes from prior include the addition of amiodarone 200 mg twice a day, amlodipine decreased from 10 mg to 5 mg daily, lisinopril decreased from 40
mg to 20 mg daily, medication additions include Brilinta 90 mg twice a day.
Of note the patient was noted to have persisting hyperglycemia and in the setting of possible new onset type 2 diabetes mellitus will obtain a glycosylated hemoglobin prior to his discharge should be followed up by his PCP I did not elect to place
him on initial dosing of metformin given proximity to his contrast study catheterization instructions on a low calorie diet and the need for follow-up with his PCP.
Discharge Plan
-
Patient Disposition: Home (Routine Discharge)
Discharge Diagnosis/Procedures: VT/VF arrest, Angioplasty and stent to Left Circumflex artery
Suspect new onset type 2 diabetes mellitus
Diet: Diabetic, Carb Controlled
Driving Restrictions: No driving for 24 hours
Other Services: Cardiac Rehab
Stand Alone Forms: DC Instructions- Cath/EP Lab
Referrals:
Rakesh Roland MD [Active] -
(Lung cancer screening
Revisit sleep apnea given comorbidities
3-month follow-up)
Mala Garcia DO [Family Provider] - in less than 1 week
(Should follow-up to address elevated blood sugars and start treatment for diabetes if glycosylated hemoglobin dictates
Follow-up results of glycosylated hemoglobin)
Elo Damico PA-C [Specified Professional Personl] - 09/05/23 9:40 am (Cardiology folowup appointment)
Prescriptions:
New
Brilinta 90 mg Tablet
90 mg PO BID Qty: 60 0RF
amiodarone [Pacerone] 200 mg Tablet
200 mg PO BID Qty: 60 0RF
lisinopril 20 mg Tablet
20 mg PO DAILY Qty: 30 0RF
amlodipine 5 mg Tablet
5 mg PO DAILY Qty: 30 0RF
Continued
metoprolol succinate 50 mg Tablet Extended Release 24 Hr
50 mg PO DAILY
chlorthalidone 25 mg Tablet
25 mg PO DAILY
aspirin 81 mg Tablet,Delayed Release (Dr/Ec)
81 mg PO DAILY
pravastatin 80 mg Tablet
80 mg PO HS
naproxen sodium [Aleve] 220 mg Tablet
220 mg PO HS
naproxen sodium [Aleve] 220 mg Tablet
440 mg PO DAILY
lorazepam 1 mg Tablet
1 mg PO HS
cholecalciferol (vitamin D3) 1,250 mcg (50,000 unit) Capsule
1,250 mcg PO FR@0800
omega 8-dcm-bqo-fish oil [Fish Oil] 1,000 mg (120 mg-180 mg) Capsule
1 cap PO DAILY
Spiriva Respimat 2.5 mcg/actuation Mist
2.5 mcg INHALATION R HS
Discontinued
amlodipine 10 mg Tablet
10 mg PO DAILY
lisinopril 40 mg Tablet
40 mg PO DAILY
Discharge Orders:
Discharge Patient (As Directed); Ordered 08/21/23
Ordered By: Juanito Collado
Care Plan Goals
Care Plan Goals:
Problem: Readiness for enhanced knowledge related to diagnosis and treatment plan
Goal: Understand your diagnosis and treatment plan needs, including medications if applicable.
Instructions: Know your diagnosis, underlying causes and treatment plan options, including medications if applicable. Consult with your health care team to learn about your diagnosis and treatment plan, including medications if applicable.
Discharge Date and Time
Print Language: AMHARIC
--- NOTE | 2023-08-21 13:18 | W.DS.TRANS ---
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
-
Discharge Instructions:
Discharge Diagnosis/Procedures VT/VF arrest, Angioplasty and stent to Left
Circumflex artery
Suspect new onset type 2 diabetes mellitus
Diet Diabetic, Carb Controlled
Driving Restrictions No driving for 24 hours
Other Services Cardiac Rehab
Instructions:
Stand-Alone Forms: DC Instructions- Cath/EP Lab
Changes to Home Medications: Yes
Discharge Medications:
DC Medications w/original date entered in [employer]
aspirin 81 mg tablet,delayed release 81 mg PO DAILY Blood Clot Prevention/Tx 08/18/23
chlorthalidone 25 mg tablet 25 mg PO DAILY Blood Pressure 08/18/23
cholecalciferol (vitamin D3) 1,250 mcg (50,000 unit) capsule 1,250 mcg PO FR@0800 Supplement 08/18/23
lorazepam 1 mg tablet 1 mg PO HS Mental Health/Anxiety 08/18/23
metoprolol succinate 50 mg tablet,extended release 24 hr 50 mg PO DAILY Blood Pressure 08/18/23
naproxen sodium 220 mg tablet (Aleve) 220 mg PO HS Pain 08/18/23
naproxen sodium 220 mg tablet (Aleve) 440 mg PO DAILY Pain 08/18/23
omega 3-bls-rzl-fish oil 1,000 mg (120 mg-180 mg) capsule (Fish Oil) 1 cap PO DAILY Supplement 08/18/23
pravastatin 80 mg tablet 80 mg PO HS High Cholesterol 08/18/23
tiotropium bromide 2.5 mcg/actuation mist for inhalation (Spiriva Respimat) 2.5 mcg inhalation R HS Lung/Breathing Issues 08/18/23
amiodarone 200 mg tablet (Pacerone) 200 mg PO BID #60 tabs 08/21/23
amlodipine 5 mg tablet 5 mg PO DAILY #30 tabs 08/21/23
lisinopril 20 mg tablet 20 mg PO DAILY #30 tabs 08/21/23
ticagrelor 90 mg tablet (Brilinta) 90 mg PO BID #60 tabs 08/21/23
Home Medication Changes
amiodarone 200 mg tablet (Pacerone) 200 mg PO BID #60 tabs 08/21/23
amlodipine 5 mg tablet 5 mg PO DAILY #30 tabs 08/21/23
lisinopril 20 mg tablet 20 mg PO DAILY #30 tabs 08/21/23
ticagrelor 90 mg tablet (Brilinta) 90 mg PO BID #60 tabs 08/21/23
Pending Results: Yes (Obtain results of glycosylated hemoglobin the results of glycosylated hemog)
Total time spent discharging patient (in min): 57
--- NOTE | 2023-08-21 14:50 | W.PN.CARDCBS ---
Today's Communication / Plan
-
Stable cardiology status for discharge
Discussed with primary service
Follow-up at [facility]
Impression / Plan
-
Impression:
Ventricular tachycardia
VF arrest-rescuscitated
Status post circumflex stent 08/20/2023
History of Left circumflex stent >15hrs ago
Abnormal ECG
Diffuse cardiac ischemia on ECG
Tobacco abuse
HTN
COPD
Catheterization 08/20/2023
CONCLUSIONS
1. Left dominant circulation.
2. Successful percutaneous coronary artery intervention of a hazy 80 to 85% in-stent proximal left circumflex re-stenosis with a 3.5 x 23 mm Xience xuan point drug-eluting stent, successfully postdilated using a 3.75 x 12 mm NC balloon at 18 eric with
an excellent angiographic result.
3. There is tubular 50 to 60% stenosis in the mid LAD at the level of the septal and diagonal branch which is IFR negative at 0.93.
4. OM1 has mild to moderate diffuse in-stent disease.
Echocardiogram 08/18/2023: Ejection fraction 55 to 60%, hypokinesis and probable thinning of basal inferolateral, lateral and anterolateral wall from base to mid ventricle, small pericardial effusion
Rec:
He feels well status post circumflex stent on 08/20/2023
Stable cardiology status for discharge
LDL 49
Might consider eventual change to Lipitor or Crestor
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 Paul at [facility] who he sees every 6 months
VT was felt to be due to CAD per EP
Progress Note - [employer]
Subjective
Date of Service: August 21, 2023
No chest pain or shortness of breath
Objective
Labs:
08/21/23 03:40
08/21/23 03:39
Labs
Hgb 14.1 g/dL (13.0-18.0) 04/16/24 03:40
Hct 39.1 % (39.0-52.0) 08/21/23 03:40
Plt Count 185 10^3/uL (130-400) 08/21/23 03:40
PT 12.6 Sec (11.4-14.6) 08/18/23 11:29
INR 0.96 08/18/23 11:29
APTT 32.4 Sec (23.4-35.0) 08/20/23 09:59
Sodium 134 mmol/L (135-145) L 08/21/23 03:39
Potassium 3.9 mmol/L (3.5-5.1) 08/21/23 03:39
BUN 14 mg/dl (9-20) 08/21/23 03:39
Creatinine 0.8 mg/dL (0.7-1.3) 08/21/23 03:39
Glucose 85 mg/dl (70-99) 08/21/23 03:39
Troponins
08/18/23 08/18/23 08/18/23
16:01 18:21 20:44
Troponin I 11.300 H* D 9.660 H* 8.290 H*
Vital Signs and I&O:
Vital Signs
Temp Pulse Resp BP Pulse Ox
98.2 F 62 16 124/75 97
08/21/23 11:12 08/21/23 11:14 08/21/23 11:12 08/21/23 11:14 08/21/23 11:12
Vital Signs
Temp Pulse Resp BP Pulse Ox
98.2 F 62 16 124/75 97
08/21/23 11:12 08/21/23 11:14 08/21/23 11:12 08/21/23 11:14 08/21/23 11:12
Intake & Output
08/19/23 08/20/23 08/21/23 08/22/23
06:59 06:59 06:59 06:59
Intake Total 817.0 / 915.2 1098.6 / 1098.6 480 / 480
Output Total 1750 / 1750 1625 / 1625 600 / 600
Balance -933.0 / -834.8 -526.4 / -526.4 -120 / -120
Physical Exam
Physical Exam
General: Well developed, well nourished in NAD.
Neck: Supple, no JVD, HJR, carotids +2 B/L, no bruits bilaterally.
Heart: Non displaced PMI, RRR, no murmurs, No S3, S4, no rubs.
Lungs: Clear to auscultation bilaterally, no wheeze, rhonchi, rubs bilaterally,
normal expiratory phase.
Extremities: No clubbing, cyanosis or edema bilaterally.
Neuro: Grossly nonfocal, awake, alert and oriented x3.
--- NOTE | 2023-08-21 15:10 | PTCARENOTE ---
Pt ambulating ad mao in the hallway. Denies any chest pain or sob. Pt discharged to home with his . Discharge instructions given and reviewed with good understanding.
== END 2023-08-21 15:00 | disposition home or self-care (01) | DRG 321 ==
LOC: IVU 13:15
PROVIDERS: Internal Medicine; ADMITTING PHYSICIAN Internal Medicine; ATTENDING PHYSICIAN Internal Medicine; CONSULT PHYSICIAN Internal Medicine Cardiovascular Disease; CONSULT PHYSICIAN Internal Medicine Critical Care Medicine; EMERGENCY PHYSICIAN Emergency Medicine; FAMILY PHYSICIAN Internal Medicine
PROC: B2111ZZ Fluoroscopy of Multiple Coronary Arteries using Low Osmolar Contrast (ICD-10-PCS; 2023-08-20)
PROC: 4A023N7 Measurement of Cardiac Sampling and Pressure, Left Heart, Percutaneous Approach (ICD-10-PCS; 2023-08-20)
PROC: 027034Z Dilation of Coronary Artery, One Artery with Drug-eluting Intraluminal Device, Percutaneous Approach (ICD-10-PCS; 2023-08-20)
PROC: B2151ZZ Fluoroscopy of Left Heart using Low Osmolar Contrast (ICD-10-PCS; 2023-08-20)
DX: T82.855A Stenosis of coronary artery stent, initial encounter (principal); I21.4 Non-ST elevation (NSTEMI) myocardial infarction; I46.2 Cardiac arrest due to underlying cardiac condition; I49.01 Ventricular fibrillation; I47.20 Ventricular tachycardia, unspecified; I25.10 Atherosclerotic heart disease of native coronary artery without angina pectoris; I10 Essential (primary) hypertension; E78.00 Pure hypercholesterolemia, unspecified; E11.65 Type 2 diabetes mellitus with hyperglycemia; J44.9 Chronic obstructive pulmonary disease, unspecified; I71.40 Abdominal aortic aneurysm, without rupture, unspecified; F17.210 Nicotine dependence, cigarettes, uncomplicated; E87.6 Hypokalemia; G47.30 Sleep apnea, unspecified; Y83.1 Surgical operation with implant of artificial internal device as the cause of abnormal reaction of the patient, or of later complication, without mention of misadventure at the time of the procedure; I25.2 Old myocardial infarction; Z79.02 Long term (current) use of antithrombotics/antiplatelets; Z79.82 Long term (current) use of aspirin; Z79.899 Other long term (current) drug therapy; Z95.5 Presence of coronary angioplasty implant and graft
CPT/HCPCS: 93308; 71045; 76937; 80048; 80053; 80061; 82962; 83036; 83735; 84484; 85025; 85027; 85347; 85610; 85730; 86803; 93005; 93321; 93325; 93458; 93571; 94640; 96374; 96375; 97116; 97163; 99152; 99153; 99285; 99406; C1725; C1769; C1874; C1894; C9600; Q9950; Q9967